=== PATIENT | male | born 1955 | race African-American/Black ===

== ENCOUNTER 2016-12-14 16:15 | Inpatient (IN) ==
[2016-12-14] MEDS ORDERED: MAGNESIUM CITRATE 300 ML BOTTLE PO STA (16:46)
--- NOTE | 2016-12-14 16:46 | Emergency Department Note ---
Arrival - Arrival Chief Complaint: Abdominal / Flank Pain Stated Complaint: impacted,hurting ED Nursing Triage Note: C/O CONSTIPATION. LAST NORMAL BM WAS 3 DAYS AGO. C/O PAIN IN BACK. Mode of Arrival: Wheelchair Limitations: No Limitations Source: Patient Time Seen by Provider: 12/14/16 16:38 - History of Present Illness HPI Narrative: This is a 61-year-old black male who is complaining of diffuse abdominal pain today. Patient states his last normal BM was 3 days ago. He states he had a small hard BM yesterday. He currently takes [place] 5. Onset (ago): day(s) (3) Severity: moderate Quality: cramping Allergies/Adverse Reactions: Allergies Allergy/AdvReac Type Severity Reaction Status Date / Time lisinopril Allergy ANAPHYLAXIS Verified 11/11/16 10:55 Home Medications: Home Medications Medication Instructions Recorded Confirmed Type Metformin HCl 1,000 mg PO BID 09/04/16 11/24/16 History Montelukast Sodium 10 mg PO BEDTIME 09/04/16 11/24/16 History predniSONE TAB [PredniSONE] 5 mg PO DAILY 09/04/16 11/24/16 History Amiodarone Tab [Cordarone Tab] 200 mg PO BID #60 tablet 10/22/16 11/24/16 Rx Theophylline ER Cap (24 Hr) 600 mg PO DAILY #60 capsule 10/22/16 11/24/16 Rx [Alan-24] Albuterol Neb [Proventil Neb] 0.63 mg RESP TX Q6H PRN 11/11/16 11/24/16 History Dexlansoprazole [Dexilant] 60 mg PO DAILY 11/11/16 11/24/16 History Pantoprazole Tab [Protonix Tab] 40 mg PO BID #90 tablet 11/13/16 11/24/16 Rx Budesonide/Formoterol Fumarate 2 puff INH BID 11/24/16 11/24/16 History [Symbicort 160-4.5 Mcg Inhaler] HYDROcodone/ACETAMIN 5-325 [[place] 1 tablet PO BID 11/24/16 11/24/16 History 5-325] Omeprazole [Omeprazole] 20 mg PO BID 11/24/16 11/24/16 History Ondansetron Tab [Zofran Tab] 4 mg PO Q6H PRN #30 tablet 11/24/16 Rx clonazePAM TAB [KlonoPIN] 0.25 mg PO BEDTIME PRN #5 tablet 11/24/16 Rx Review of System - Review of System 12 point system: reviewed and no additional remarkable complaints except as stated - Review of System Constitutional: Present: as per HPI Gastrointestinal: Present: as per HPI, abdominal pain Medical,Surgical,& Family Hx - Medical History Cardio: History of: Cardiac Dysrhythmia (a-fib with RVR after surgery in 09/03) , Hypertension No history of: [place] Neurology: History of: Cerebrovascular Accident (2009) Endocrine: History of: Diabetes Mellitus (NIDDM) Respiratory: History of: Asthma, COPD No history of: Obstructive Sleep Apnea Genitourinary: No history of: Bladder Problem, Kidney Stones Gastrointestinal: History of: GERD, GI Problems - Surgical History Cardiac Surgeries: Patient Denies: Cardiac Catheterization HEENT Surgeries: Patient denies: Tonsilectomy & Adenoidectomy Abdominal Surgeries: Surgical HX of: Colonoscopy, EGD, Hernia Repair (08/2016) Patient denies: Appendectomy, Cholecystectomy Reproductive Surgeries: Patient denies;: Vasectomy Orthopedic Surgeries: Patient denies;: Orthopedic Surgery - Family History Family History: Reports;: Family Diabetes, Family Heart Disease, Family Hypertension Denies;: Family Anesthesia Reaction, Family Cancer, Family Psychiatric Problems, Family Stroke - Social History Smoking Status: Never smoker Frequency of Alcohol Use: None Type of Drug Use: None Exam Physical Examination: - General General appearance: [alert, in moderate distress] - Head Head exam: [Present: atraumatic, normocephalic, normal inspection] - Eye Eye exam: [Present: normal appearance, PERRL, EOMI] - ENT ENT exam: [Present: normal exam, normal oropharynx, mucous membranes moist, TM' s normal bilaterally, normal external ear exam] - Neck Neck exam: [Present: normal inspection, full ROM, trachea midline] - Chest Chest inspection: [Present: normal inspection, symmetric chest wall rise] - Respiratory Respiratory exam: [Present: normal lung sounds bilaterally] - Cardiovascular Cardiovascular exam: [Present: regular rate, normal rhythm, normal heart sounds] - Abdominal Exam Abdominal exam: [Present: soft, hyperactive bowel sounds. Pain on palpation diffusely] - Extremities Exam Extremities exam: [Present: normal inspection, full ROM] - Back Exam Back exam: [Present: normal inspection, full ROM] - Neurological Exam Neurological exam: [Present: alert, oriented X3] - Psychiatric Psychiatric exam: [Present: normal affect, normal mood] - Skin Skin exam: [Present: warm, dry, intact, normal color] Vital Signs: Vital Signs Temperature 99.7 F H 12/14/16 17:05 Pulse Rate 83 12/14/16 17:05 Respiratory Rate 18 12/14/16 17:05 Blood Pressure 117/79 12/14/16 17:05 O2 Sat by Pulse Oximetry 97 12/14/16 16:17 Course - Consultations Consultation #1: I spoke with Dr. Cantu about the patient whom he saw in the clinic this morning. He wants him admitted to the hospital for for an EGD tomorrow. Time: 17:17 Disposition Clinical Impression: Constipation, Dysphagia, Diabetes Case discussed with: patient, patient's physician Disposition: Still a Patient Time of Disposition: 17:23
--- NOTE | 2016-12-14 17:02 | XRay Report ---
Two-view abdomen. Indication: Constipation. Diffuse abdominal pain. Comparison: September 04, 2016. The heart is normal in size. The lung bases are now clear. No free air is identified within the peritoneal cavity. No organomegaly. No abnormal calcifications are seen over the renal outlines. Multiple calcifications project over the pelvis. Injection granulomas are seen at each hip. There is considerable fecal material throughout the length of the colon, including the rectal vault. There are air-fluid levels present, involving both small and large intestine. There is air in slightly dilated small intestine, particularly in the left upper quadrant. Degenerative changes are present and within the spinal column. Impression: Constipation. Scattered air-fluid levels. Mild dilatation of small intestine. A partial obstruction cannot be excluded, which could be caused by the large amount of fecal material. Treatment for constipation with follow-up exam recommended. PROCEDURE INTERPRETED AT [facility] DEPARTMENT OF RADIOLOGY Final Report Signed by: Dr. Dana Cheney
[2016-12-14 17:31] LABS: Basophils % 0.1 % (0.0-0.8); Eosinophils % 0.1 % (0.00-10.9); Hematocrit 43.5 VOL% (42.0-52.0); Hemoglobin 13.5 GM/DL (14.0-18.0); Immature Granulocytes % 0.3 %; Immature Granulocytes Absolute 0.03 #; Lymphocytes # 0.9 10*3/uL (1.4-4.0); Lymphocytes % 9.5 % (21.2-54.2); Mean Corpuscular Hemoglobin 28 PG (27-34); Mean Platelet Volume 9.6 FL (9.6-12.0); Monocytes # 0.9 10*3/uL (0.11-0.8); Monocytes % 9.4 % (1.7-12.7); Neutrophils % 80.6 % (38.7-73.9); Platelet Count 330 T/CUMM (130-400); Red Blood Count 4.89 MC/CUMM (3.8-5.5); White Blood Count 9.9 T/CUMM (4-12)
[2016-12-14 17:55] LABS: Calcium 9.7 MG/DL (8.5-10.1); Osmolality,Calculated 281.1 MOS/KG (273-304); Potassium 3.6 MMOL/L (3.5-5.1)
[2016-12-14] MEDS ORDERED: SODIUM CHLORIDE 0.9% 1,000 ML IV STA (18:12)
[2016-12-14] MEDS ORDERED: ONDANSETRON 4 MG/2 ML VIAL IV PRN (18:37)
[2016-12-14] MEDS ORDERED: ACETAMINOPHEN 325 MG TABLET PO PRN (18:37)
--- NOTE | 2016-12-14 18:48 | Event Note ---
Interval note. Patient was seen in the office this morning. He is approximately 3 months status post repair of a very large paraesophageal hernia. Postoperatively he's had dysphagia that each time has symptoms have improved briefly after dilation. On the last dilation he was noted to have candidiasis and was prescribed Diflucan but it is unsure if the patient ever took that medication. He presented to the office this morning with complaints of recurrence in his dysphagia. I discussed it with Dr. blank and set him up for an EGD to be done as an outpatient tomorrow. After the patient left the office he went home and states he began to have pain trying to have a bowel movement. He states the pain is in the rectal area and has been unable to ago. He hasn't had a bowel movement in 3 days he said. He did not relate any of this problem to me clinic. He came to the emergency room. He has no abdominal pain. On exam he' s mildly distended but nontender. He's mildly tender around the rectal area. No fluctuance or erythema is identified. Labs are okay and abdominal x-ray shows fairly severe constipation. Plan: I'm going to admit the patient both for his dysphagia and his constipation. We'll begin a bowel regimen. We'll consult Dr. aiken for EGD tomorrow. I would like to rule out any further candidiasis before deciding on reoperation for his stricture. We'll also consult Hospital medicine to manage his multiple medical problems.
[2016-12-14] MEDS: LACTATED RINGERS 1,000 ML IV SCH (19:59)
[2016-12-14] MEDS: DOCUSATE SODIUM 100 MG CAPSULE PO SCH (21:51)
[2016-12-15] MEDS: LACTATED RINGERS 1,000 ML IV SCH ×2 (03:46→19:01)
--- NOTE | 2016-12-15 08:35 | Hospitalist Consult Note ---
Assessment and Plan (1) Constipation Status: Acute Assessment and plan: per Dr. Hernandez's note plan is for bowel regimen. Current Visit: Yes (2) COPD (chronic obstructive pulmonary disease) Status: Chronic Assessment and plan: Monitor O2 sats. Restart home medications once patient is no longer NPO. Current Visit: No Qualifiers: COPD type: unspecified COPD Qualified Code(s): J44.9 - Chronic obstructive pulmonary disease, unspecified (3) Diabetes Status: Acute Assessment and plan: Accuchecks ACHS. SSI. Obtain Hemoglobin A1c. Current Visit: Yes (4) Atrial fibrillation Status: Chronic Assessment and plan: Obtain EKG. Pt. currently on amiodarone. Check pt/inr. Telemetry monitoring. Current Visit: No Qualifiers: Atrial fibrillation type: paroxysmal Qualified Code(s): I48.0 - Paroxysmal atrial fibrillation (5) Hypertension Status: Chronic Assessment and plan: Pt's vs currently stable. Will continue to monitor. Restart home meds if necessary. Current Visit: No Qualifiers: Hypertension type: essential hypertension Qualified Code(s): I10 - Essential (primary) hypertension History of Present Illness - Data of Consult Consult date: 12/15/16 - Consult Narrative Reason for consult: medical management History of present illness: Patient seen and examined. Mr. Abreu is a 61 yr old black male patient with a hx of dm, htn, afib, asthma, COPD, empheysema, and recent repair of large paraesophageal hernia. The patient was seen by Dr. Hernandez in office yesterday for a follow up. Pt. was having issues with dysphagia postoperatively. The patient was to follow up for EGD as an outpatient however after office visit, pt complained of pain while trying to have a bowel movement. Pt. reported to ER with abd pain and was subsequently was admitted. Abd xray revealed severe constipation. Pt. stated he has not had a bowel movement in several days. He also admits to taking pain medication ([place] 5/325mg) regularly. Pt denies abd discomfort or tenderness today but is slightly distended. Denies fever, chills, nausea or vomiting as well. Discussed with patient plans for management of other comorbidities. Thank you for your consult. CC: Jaguar Hernandez MD - Home Medications and Allergies Home Medications: Home Medications Medication Instructions Recorded Confirmed Type Metformin HCl 500 mg PO BID 09/04/16 12/14/16 History Montelukast Sodium 10 mg PO BEDTIME 09/04/16 12/14/16 History predniSONE TAB [PredniSONE] 5 mg PO DAILY 09/04/16 12/14/16 History Amiodarone Tab [Cordarone Tab] 200 mg PO BID #60 tablet 10/22/16 12/15/16 Rx Albuterol Neb [Proventil Neb] 0.63 mg RESP TX Q6H PRN 11/11/16 12/14/16 History Dexlansoprazole [Dexilant] 60 mg PO DAILY 11/11/16 12/14/16 History Budesonide/Formoterol Fumarate 2 puff INH BID 11/24/16 12/14/16 History [Symbicort 160-4.5 Mcg Inhaler] HYDROcodone/ACETAMIN 5-325 [[place] 1 tablet PO BID 11/24/16 12/14/16 History 5-325] Omeprazole [Omeprazole] 20 mg PO BID 11/24/16 12/15/16 History Amlodipine Besylate 10 mg PO DAILY 12/14/16 12/14/16 History Theophylline ER Cap (24 Hr) 600 mg PO BID 12/14/16 12/14/16 History [Alan-24] cephALEXin [Cephalexin] 500 mg PO BID 12/14/16 12/14/16 History Allergies/Adverse Reactions: Allergies Allergy/AdvReac Type Severity Reaction Status Date / Time lisinopril Allergy ANAPHYLAXIS Verified 11/11/16 10:55 Medical,Surgical,& Family Hx - Medical History Cardio: History of: Cardiac Dysrhythmia (a-fib with RVR after surgery in 09/03) , Hypertension No history of: [place] Neurology: History of: Cerebrovascular Accident (2009) Endocrine: History of: Diabetes Mellitus (NIDDM) Respiratory: History of: Asthma, COPD No history of: Obstructive Sleep Apnea Genitourinary: No history of: Bladder Problem, Kidney Stones Gastrointestinal: History of: GERD, GI Problems - Surgical History Cardiac Surgeries: Patient Denies: Cardiac Catheterization HEENT Surgeries: Patient denies: Tonsilectomy & Adenoidectomy Abdominal Surgeries: Surgical HX of: Colonoscopy, EGD, Hernia Repair (08/2016) Patient denies: Appendectomy, Cholecystectomy Reproductive Surgeries: Patient denies;: Vasectomy Orthopedic Surgeries: Patient denies;: Orthopedic Surgery - Family History Family History: Reports;: Family Diabetes, Family Heart Disease, Family Hypertension Denies;: Family Anesthesia Reaction, Family Cancer, Family Psychiatric Problems, Family Stroke - Social History Smoking Status: Former smoker Frequency of Alcohol Use: None Type of Drug Use: None Lives With:: Parent Functional capacity: independent ambulation - Constitutional Constitutional: Absent: chills, fever(s), headache(s) - EENT Eyes: Absent: loss of vision - Cardiovascular Cardiovascular: Absent: edema - Respiratory Respiratory: Absent: cough - Gastrointestinal Gastrointestinal: Present: constipation, dysphagia. Absent: nausea, vomiting - Genitourinary Genitourinary: Absent: difficulty urinating Exam - Constitutional Vitals: Period Temp Pulse Resp BP Sys/Jeffrey Pulse Ox Last 24 Hr 98.5 F-99.3 F 63-80 20-20 104-128/67-78 96-99 General appearance: normal weight, no acute distress - Head Head exam: Present: normal inspection, normocephalic - Eye Eye exam: Present: EOMI Pupils: Present: BELEN - Neck Neck exam: Present: normal inspection - Respiratory Respiratory exam: Present: clear to auscultation bilaterally - GI/Abdominal GI/Abdominal exam: Present: normal bowel sounds, distended. Absent: tenderness - Extremities Exam Extremities exam: Present: normal capillary refill, full ROM. Absent: edema - Neurological Exam Neurological exam: Present: alert, oriented X3, normal gait - Psychiatric Psychiatric exam: Present: normal affect, normal mood - Skin Skin exam: Present: normal color, warm, dry Results - Labs CBC & BMP: 12/14/16 17:17 12/14/16 17:17 Lab Results: I have reviewed the past 24 hour labs Quality Measures - VTE Contraindication to Pharmacological VTE Prophylaxis: High Risk of Bleeding
[2016-12-15] MEDS ORDERED: BISACODYL 10 MG SUPP RECTAL SCH (09:00)
[2016-12-15] MEDS: BISACODYL 5 MG TABLET PO SCH (09:51)
[2016-12-15] MEDS: DOCUSATE SODIUM 100 MG CAPSULE PO SCH ×2 (09:52→21:15)
[2016-12-15] MEDS: PANTOPRAZOLE 40 MG TABLET PO SCH (09:52)
[2016-12-15] MEDS ORDERED: DEXTROSE 50% 25 GM/50 ML VIAL IV PRN (09:55)
[2016-12-15] MEDS ORDERED: GLUCAGON 1 MG VIAL IM PRN (09:55)
[2016-12-15] MEDS: POLYETHYLENE GLYCOL POWDER 17 GM PACK PO SCH (09:55)
[2016-12-15] MEDS ORDERED: ALBUTEROL 0.63 MG/3 ML NEB RESP TX PRN (10:10)
--- NOTE | 2016-12-15 10:16 | Gastrointestinal Consult Note ---
<Zaida Cota - Last Filed: 12/15/16 10:08> Assessment and Plan (1) Dysphagia Status: Acute Assessment and plan: 12/15-History of dysphagia following large paraesophageal hernia repair 3 months ago presents with continued dysphagia with mild improvements. Has undergone 3 prior EGDs with balloon dilation in past couple months. Weight down slightly from last admission. Scheduled for repeat EGD today, Plan and addendum to followed by Dr. Mclain Current Visit: No (2) Constipation Status: Acute Assessment and plan: 12/15-Complaints of worsening constipation, abd distention. Abd xray results noted. Pt with large bowel movement this morning, report of relief of abd distention, discomfort. Continue bowel regimen. Plan and addendum to follow by Dr Mclain. Current Visit: Yes History of Present Illness Chief complaint: Dysphagia, constipation History of present illness: Mr. Abreu is a 61 year old male who presented to the hospital with complaints of dysphagia and constipation. Pt was seen in clinic on yesterday by Dr Hernandez for followup on his dysphagia following paraesophageal hernia repair which was done 3 months ago. During the clinic visit he voiced complaints of his continued dysphagia and episodes of nausea with vomiting and regurgitation at times. He was scheduled for an outpatient EGD on today with Dr Mclain. He returned home following the appointment and later in the evening he called back complaining of abdominal pain and no bowel movement x 3 days. He was referred to the ER for further evaluation. Pt states that he has had some constipation issues over the last several weeks. States his swallowing has been some better and able to take more in orally however at times he will have off and on episodes of nausea after eating with regurgitation and vomiting. He states this has improved some. He has had 3 recent EGD with balloon dilation with most recent on 11/12 with also findings of oral candiadias. He was discharged home on Fluconazole. Abdominal xray on admission showed constipation, mild dilation of small intestine. On his last admission in Oct he had a barium swallow with findings of narrowing of distal esophagus with no significant changes from previous study. Pt states that he has had no abdominal pain. His weight is down approximately 4-5 pounds from last inpatient stay in Oct. He states he is not gaining weight but he is eating more. He has had a large bowel movement this morning with initiation of bowel regimen. He is scheduled for EGD today. Home Medications Medication Instructions Recorded Confirmed Type Metformin HCl 500 mg PO BID 09/04/16 12/14/16 History Montelukast Sodium 10 mg PO BEDTIME 09/04/16 12/14/16 History predniSONE TAB [PredniSONE] 5 mg PO DAILY 09/04/16 12/14/16 History Amiodarone Tab [Cordarone Tab] 200 mg PO BID #60 tablet 10/22/16 12/15/16 Rx Albuterol Neb [Proventil Neb] 0.63 mg RESP TX Q6H PRN 11/11/16 12/14/16 History Dexlansoprazole [Dexilant] 60 mg PO DAILY 11/11/16 12/14/16 History Budesonide/Formoterol Fumarate 2 puff INH BID 11/24/16 12/14/16 History [Symbicort 160-4.5 Mcg Inhaler] HYDROcodone/ACETAMIN 5-325 [[place] 1 tablet PO BID 11/24/16 12/14/16 History 5-325] Omeprazole [Omeprazole] 20 mg PO BID 11/24/16 12/15/16 History Amlodipine Besylate 10 mg PO DAILY 12/14/16 12/14/16 History Theophylline ER Cap (24 Hr) 600 mg PO BID 12/14/16 12/14/16 History [Alan-24] cephALEXin [Cephalexin] 500 mg PO BID 12/14/16 12/14/16 History Allergies Allergy/AdvReac Type Severity Reaction Status Date / Time lisinopril Allergy ANAPHYLAXIS Verified 11/11/16 10:55 Medical,Surgical,& Family Hx - Medical History Cardio: History of: Cardiac Dysrhythmia (a-fib with RVR after surgery in 09/03) , Hypertension No history of: [place] Neurology: History of: Cerebrovascular Accident (2009) Endocrine: History of: Diabetes Mellitus (NIDDM) Respiratory: History of: Asthma, COPD No history of: Obstructive Sleep Apnea Genitourinary: No history of: Bladder Problem, Kidney Stones Gastrointestinal: History of: GERD, GI Problems - Surgical History Cardiac Surgeries: Patient Denies: Cardiac Catheterization HEENT Surgeries: Patient denies: Tonsilectomy & Adenoidectomy Abdominal Surgeries: Surgical HX of: Colonoscopy, EGD, Hernia Repair (08/2016) Patient denies: Appendectomy, Cholecystectomy Reproductive Surgeries: Patient denies;: Vasectomy Orthopedic Surgeries: Patient denies;: Orthopedic Surgery - Family History Family History: Reports;: Family Diabetes, Family Heart Disease, Family Hypertension Denies;: Family Anesthesia Reaction, Family Cancer, Family Psychiatric Problems, Family Stroke - Social History Smoking Status: Former smoker Frequency of Alcohol Use: None Type of Drug Use: None 12 point system: reviewed and no additional remarkable complaints except as stated - Constitutional Constitutional: Present: as per HPI - EENT Eyes: Present: as per HPI Ears: Present: as per HPI Nose, mouth and throat: Present: as per HPI, dysphagia - Cardiovascular Cardiovascular: Present: as per HPI - Respiratory Respiratory: Present: as per HPI - Gastrointestinal Gastrointestinal: Present: as per HPI, dysphagia, nausea, vomiting, other ( Regurgitating following eating) - Genitourinary Genitourinary: Present: as per HPI - Musculoskeletal Musculoskeletal: Present: as per HPI - Neurological Neurological: Present: as per HPI - Psychiatric Psychiatric: Present: as per HPI - Endocrine Endocrine: Present: as per HPI - Hematologic/Lymphatic Hematologic/Lymphatic: Present: as per HPI Exam - Constitutional Vitals: Period Temp Pulse Resp BP Sys/Jeffrey Pulse Ox Last 24 Hr 98.5 F-99.3 F 63-80 20-20 104-128/67-78 96-99 General appearance: normal weight, no acute distress - Head Head exam: Present: normal inspection, normocephalic - Eye Eye exam: Present: other (Lids and conjunctivae are normal). Absent: scleral icterus - ENT ENT exam: Present: normal exam, normal oropharynx - Neck Neck exam: Present: normal inspection - Respiratory Respiratory exam: Present: clear to auscultation bilaterally. Absent: rales, rhonchi, wheezes - Cardiovascular Cardiovascular exam: Present: regular rate and rhythm. Absent: diastolic murmur , JVD, systolic murmur - GI/Abdominal GI/Abdominal exam: Present: normal bowel sounds, soft. Absent: ascites, distended, mass, organomegaly, tenderness - Extremities Exam Extremities exam: Present: normal inspection, full ROM - Back Exam Back exam: Present: normal inspection - Neurological Exam Neurological exam: Present: alert, oriented X3 - Psychiatric Psychiatric exam: Present: normal affect, normal mood - Skin Skin exam: Present: normal color, warm, dry Results - Labs CBC & BMP: 12/14/16 17:17 12/14/16 17:17 Lab Results: I have reviewed the past 24 hour labs Quality Measures - VTE Contraindication to Pharmacological VTE Prophylaxis: High Risk of Bleeding <Dao Mclain - Last Filed: 12/15/16 13:36> History of Present Illness History of present illness: Mr. Abreu is a 61 year old male Exam - Constitutional Vitals: Period Temp Pulse Resp BP Sys/Jeffrey Pulse Ox Last 24 Hr 98.5 F-99.3 F 63-80 20-20 104-128/67-78 96-99 Results - Labs CBC & BMP: 12/14/16 17:17 12/14/16 17:17
--- NOTE | 2016-12-15 13:29 | Event Note ---
Vital signs stable. Patient had several bowel movements and his constipation symptoms are much improved. He is for EGD today. Abdomen is soft nontender nondistended. We'll schedule for gastric emptying scan tomorrow. Possible surgery on Tuesday.
[2016-12-15] MEDS ORDERED: LIDOCAINE 2% 5 ML VIAL ONE (13:34)
[2016-12-15] MEDS ORDERED: PROPOFOL 200 MG/20 ML VIAL IV ONE (13:34)
--- NOTE | 2016-12-15 13:38 | History and Physical Update ---
History and Physical Update - History and Physical H&P was reviewed, the patient examined and there: are no changes in the patients condition since last H&P was completed. - Physical Exam Mental Status: alert and oriented Heart: regular rate and rhythm Lung: clear to auscultation Abdomen: within normal limits Vitals: within normal limits
[2016-12-15] MEDS ORDERED: ALBUTEROL/IPRATROPIUM 3 ML NEB RESP TX STA (14:03)
--- NOTE | 2016-12-15 14:12 | Operative Note ---
Date of procedure: 12/15/16 Pre-op diagnosis: Dysphagia Procedure: Procedure: Esophagogastroduodenoscopy with balloon dilation esophagus Brief clinical abstract: Patient is a 61-year-old male who has had recurrent stricture formation after Tiffany fundoplication. He also had esophageal candidiasis noted and EGD about a month ago. He returns with complaint of difficulty swallowing. Indication for procedure: Dysphagia Endoscopic findings:[After informed consent was obtained, the patient was placed in the left lateral decubitus position. The gastroscope was inserted in the upper esophagus under direct vision with no resistance encountered. A moderate amount of whitish exudate was scattered in the upper and midesophagus consistent with candidiasis. Just above the GE junction a couple of sutures were noted. Just distal to this moderate narrowing was visible. The endoscope was advanced in the stomach which was carefully examined including retroflexed view of the cardia and fundus with no other abnormality seen. The pyloric channel, duodenal bulb, second and third portion of the duodenum were normal. Endoscope was withdrawn and then Emden wire-guided balloon was advanced to the GE junction. This was initially dilated to 15 mm for 60 seconds and deflated. No bleeding or mucosal tear was seen. The balloon was reinflated to 16.5 mm for 60 seconds and deflated again. Again, no mucosal tear or bleeding was visible. The endoscope was then removed. He appeared to tolerate the procedure well. Impression: #1 esophageal candidiasis #2 distal esophageal stricture-mild to moderate severity with significant improvement from initial dilation; status post balloon dilation today Recommendations: Fluconazole F Anesthesia: MAC Surgeon / Physician: Dao Mclain Estimated blood loss: none Specimens: none sent Condition: stable Disposition: post procedure unit Results - Labs CBC & BMP: 12/14/16 17:17 12/14/16 17:17 Discharge Plan - Discharge Medications No Action Montelukast Sodium 10 mg PO BEDTIME Metformin HCl 500 mg PO BID Dexlansoprazole [Dexilant] 60 mg PO DAILY Budesonide/Formoterol Fumarate [Symbicort 160-4.5 Mcg Inhaler] 2 puff INH BID HYDROcodone/ACETAMIN 5-325 [[place] 5-325] 1 tablet PO BID Amlodipine Besylate 10 mg PO DAILY Theophylline ER Cap (24 Hr) [Alan-24] 600 mg PO BID predniSONE TAB [PredniSONE] 5 mg PO DAILY Amiodarone Tab [Cordarone Tab] 200 mg PO BID #60 tablet Albuterol Neb [Proventil Neb] 0.63 mg RESP TX Q6H PRN PRN Reason: Shortness Of Breath/Wheezing Omeprazole [Omeprazole] 20 mg PO BID cephALEXin [Cephalexin] 500 mg PO BID - Follow Up or Referral - Forms/Instructions
--- NOTE | 2016-12-15 14:36 | Anesthesia ---
Anesthesia Post OP - Post Ansesthetic Evaluation Patient seen in post op: Yes Resp: within normal limits CV: within normal limits Mental: within normal limits Temp: within normal limits Saaj-Wg-Qjjmfwzxv: within normal limits Nausea and Vomiting: within normal limits Pain: within normal limits
[2016-12-15] MEDS: THEOPHYLLINE ER (24 HR) 300 MG CAPSULE PO SCH ×2 (15:41→21:15)
[2016-12-15] MEDS: AMIODARONE 200 MG TABLET PO SCH (15:41)
[2016-12-15] MEDS: amLODIPine 10 MG TABLET PO SCH (15:42)
[2016-12-15] MEDS: INSULIN LISPRO 100 UNIT/ML SUBCUT SCH ×3 (15:42→21:16)
[2016-12-15] MEDS ORDERED: FLUCONAZOLE INJ 200 MG in PREMIX 1 EACH IV ONE (16:50)
[2016-12-15] MEDS: MONTELUKAST 10 MG TABLET PO SCH (21:15)
[2016-12-15] MEDS: BUDESONIDE/FORMOTEROL 160-4.5 INHALER 6 GM INH SCH (21:21)
[2016-12-16] MEDS: LACTATED RINGERS 1,000 ML IV SCH ×4 (00:10→19:45)
[2016-12-16 05:52] LABS: Basophils % 0.1 % (0.0-0.8); Eosinophils # 0.1 10*3/uL (0.0-0.87); Eosinophils % 1.8 % (0.00-10.9); Hemoglobin 11.6 GM/DL (14.0-18.0); Immature Granulocytes % 0.3 %; Immature Granulocytes Absolute 0.02 #; Lymphocytes # 1.4 10*3/uL (1.4-4.0); Lymphocytes % 18.6 % (21.2-54.2); Mean Corpuscular HGB Conc 31.4 GM/DL (32-36); Mean Corpuscular Hemoglobin 28 PG (27-34); Mean Corpuscular Volume 87.7 FL (87-102); Mean Platelet Volume 9.7 FL (9.6-12.0); Monocytes # 0.9 10*3/uL (0.11-0.8); Monocytes % 11.7 % (1.7-12.7); Neutrophils % 67.5 % (38.7-73.9); Platelet Count 272 T/CUMM (130-400); Red Blood Count 4.22 MC/CUMM (3.8-5.5); White Blood Count 7.3 T/CUMM (4-12)
[2016-12-16 06:02] LABS: INR 1.1; PT Patient Result 11.3 SECS
[2016-12-16 06:32] LABS: Calcium 9.1 MG/DL (8.5-10.1)
[2016-12-16 06:33] LABS: Osmolality,Calculated 283.7 MOS/KG (273-304); Potassium 4.2 MMOL/L (3.5-5.1)
[2016-12-16] MEDS: INSULIN LISPRO 100 UNIT/ML SUBCUT SCH ×4 (10:30→20:40)
--- NOTE | 2016-12-16 11:15 | Nuclear Medicine Report ---
Exam: Nuclear medicine gastric emptying study Date: December 16, 2016 Comparison: None Reason: Vomiting Technique: The patient was orally administered 500 microcuries of technetium 99m sulfur colloid orally in a scrambled egg sandwich. Images of the stomach were then acquired over 224 minutes, and gastric emptying time was calculated. Findings: Linear fit T 1/2 is 732.32 minutes, and raw data T 1/2 could not be determined. Gastric emptying at 224 minutes is 16% (Normal greater than 90%). Radiotracer activity is seen at the esophagus on all images. This is consistent with gastroesophageal reflux and is most prominent on the 1 minute image where there is reflux to at least the mid esophagus. Impression: 1. Findings are consistent with delayed gastric emptying. 2. Gastroesophageal reflux is seen throughout the study. PROCEDURE INTERPRETED AT [facility] DEPARTMENT OF RADIOLOGY Final Report Signed by: Dr. Jeff Benedict
[2016-12-16] MEDS: THEOPHYLLINE ER (24 HR) 300 MG CAPSULE PO SCH ×2 (11:38→20:39)
[2016-12-16] MEDS: amLODIPine 10 MG TABLET PO SCH (11:38)
[2016-12-16] MEDS: predniSONE 5 MG TABLET PO SCH (11:38)
[2016-12-16] MEDS: PANTOPRAZOLE 40 MG TABLET PO SCH (11:39)
[2016-12-16] MEDS: DOCUSATE SODIUM 100 MG CAPSULE PO SCH ×2 (11:40→20:39)
[2016-12-16] MEDS: BISACODYL 5 MG TABLET PO SCH (11:40)
[2016-12-16] MEDS: ASPIRIN CHEW 81 MG TABLET PO SCH (11:40)
[2016-12-16] MEDS: BUDESONIDE/FORMOTEROL 160-4.5 INHALER 6 GM INH SCH ×2 (11:41→20:39)
[2016-12-16] MEDS: POLYETHYLENE GLYCOL POWDER 17 GM PACK PO SCH (11:41)
--- NOTE | 2016-12-16 13:44 | Gastrointestinal Progress Note ---
Assessment and Plan (1) Dysphagia Status: Acute Assessment and plan: 12/16-dysphagia improved status post balloon dilation on yesterday. EGD findings noted. Tolerating diet at present time without difficulty. Gastric emptying scan results noted with delayed emptying. Plan an addendum to followed by Dr. Mclain 12/15-History of dysphagia following large paraesophageal hernia repair 3 months ago presents with continued dysphagia with mild improvements. Has undergone 3 prior EGDs with balloon dilation in past couple months. Weight down slightly from last admission. Scheduled for repeat EGD today, Plan and addendum to followed by Dr. Mclain Current Visit: No (2) Constipation Status: Acute Assessment and plan: 12/16-constipation resolved at present time. 12/15-Complaints of worsening constipation, abd distention. Abd xray results noted. Pt with large bowel movement this morning, report of relief of abd distention, discomfort. Continue bowel regimen. Plan and addendum to follow by Dr Mclain. Current Visit: Yes Gastroenterology - PN: Subj Interval history: CC: Dysphagia Patient is seen awake and alert sitting up in bed. States he is feeling better today. States he was able to eat more today of his diet and is denying difficulty swallowing at present time. Denies any further nausea or vomiting at present time as well. He did go down for a gastric emptying scan today and it was noted to show delayed emptying with 16% at 224 minutes. EGD findings and yesterday noted with esophageal candidiasis and distal esophageal stricture with balloon dilation. Fluconazole started. Abdomen is soft, nontender. ROS: Denies shortness of breath or chest pain Exam (Progress Note) - Constitutional Vitals: Period Temp Pulse Resp BP Sys/Jeffrey Pulse Ox Last 24 Hr 96.5 F-99.1 F 60-82 18-23 91-143/45-90 91-99 - Other Additional findings: General appearance: normal weight, no acute distress - Head Head exam: Present: normal inspection, normocephalic - Eye Eye exam: Present: other (Lids and conjunctivae are normal). Absent: scleral icterus - ENT ENT exam: Present: normal exam, normal oropharynx - Neck Neck exam: Present: normal inspection - Respiratory Respiratory exam: Present: clear to auscultation bilaterally. Absent: rales, rhonchi, wheezes - Cardiovascular Cardiovascular exam: Present: regular rate and rhythm. Absent: diastolic murmur , JVD, systolic murmur - GI/Abdominal GI/Abdominal exam: Present: normal bowel sounds, soft. Absent: ascites, distended, mass, organomegaly, tenderness - Extremities Exam Extremities exam: Present: normal inspection, full ROM - Back Exam Back exam: Present: normal inspection - Neurological Exam Neurological exam: Present: alert, oriented X3 - Psychiatric Psychiatric exam: Present: normal affect, normal mood - Skin Skin exam: Present: normal color, warm, dry Results - Labs CBC & BMP: 12/16/16 05:38 12/16/16 05:38 Lab Results: I have reviewed the past 24 hour labs
--- NOTE | 2016-12-16 14:02 | Hospitalist Progress Note ---
Assessment and Plan (1) Hypertension Status: Chronic Assessment and plan: Patient's blood pressure has been running a little bit low. I am going to reduce his Norvasc dose from 10 mg to 5 mg daily. Current Visit: No Qualifiers: Hypertension type: essential hypertension Qualified Code(s): I10 - Essential (primary) hypertension (2) COPD (chronic obstructive pulmonary disease) Status: Chronic Assessment and plan: Continue medications. Current Visit: No Qualifiers: COPD type: unspecified COPD Qualified Code(s): J44.9 - Chronic obstructive pulmonary disease, unspecified (3) Atrial fibrillation Status: Chronic Assessment and plan: Patient is currently not anticoagulated. Review of his previous medical record shows that he was on Eliquis and amiodarone. Medication list from his pharmacy shows that he has not been on those medications for over 3 months. He will need outpatient cardiology follow-up after discharge. Current Visit: No Qualifiers: Atrial fibrillation type: paroxysmal Qualified Code(s): I48.0 - Paroxysmal atrial fibrillation (4) Dysphagia Status: Acute Assessment and plan: This has improved after esophageal dilatation by gastroenterology. Current Visit: No Hospitalist: Subjective Interval history: Patient seen and examined. No acute events. Gastric emptying study shows delayed gastric emptying. Swallowing is improved after EGD with dilatation. Patient started on treatment for esophageal candidiasis. Blood pressure is running a little low. I am going to reduce his Norvasc from 10 mg to 5 mg. Medication list was obtained from Mr. salas at [facility]. The patient has not been receiving Eliquis or amiodarone as an outpatient for the last 3 months. Medications were adjusted and reconciled once again. The hospital pharmacist's help is greatly appreciated. Exam - Constitutional Vitals: Period Temp Pulse Resp BP Sys/Jeffrey Pulse Ox Last 24 Hr 96.5 F-99.1 F 60-82 18-23 91-143/45-90 91-99 Exam: Constitutional System: No distress. No tremulousness. Head: Normocephalic, atraumatic. Ears, Nose and Throat System: No pain or tenderness. No epistaxis or discharge Eyes System: Pupils equal, round, and reactive. Extraocular muscles intact. Neck: Supple, without adenopathy, No jugular venous distention. No thyromegaly, neck mass, or prior surgery apparent. Respiratory System: Chest clear to auscultation. Cardiovascular System: Heart with regular rate and rhythm. No murmur. GI System: Abdomen soft, nontender. Normo active bowel sounds present. Musculoskeletal System: limbs with no pedal edema. Full distal pulses. Neurological System: No discernable sensory deficit. No aphasia Psychiatric System: Conversation is rational Results - Labs CBC & BMP: 12/16/16 05:38 12/16/16 05:38 Lab Results: I have reviewed the past 24 hour labs Quality Measures - VTE Contraindication to Pharmacological VTE Prophylaxis: High Risk of Bleeding
--- NOTE | 2016-12-16 14:07 | Event Note ---
Patient seen and examined. He's doing pretty well. He underwent dilation of the stricture yesterday. He's been tolerating full liquid diet without problems. This is been pretty standard for him after dilation in the past where he does well for several days and then has further problems of dysphagia. He underwent gastric emptying scan today which shows markedly severe gastroparesis. Maybe due to vagal issues with his previous fundoplication. In addition he had radiotracer still in the esophagus which was read as reflux. However I feel like this is most likely due to retained radiotracer that never made it into the stomach because of the stricture. I reviewed the previous barium studies. I discussed the problems with him. We discussed the possibilities of continuing current management. He has been unable to take Reglan in the past. I think the best option for him would be conversion of his Tiffany to a toupee to relieve the stricture at the wrap as well as a pyloroplasty to allow the stomach to empty better. I discussed this with him in detail including how the procedures are performed and the anticipated recovery. Risk of the procedure including bleeding, infection, damage to surrounding structures, need for further surgery, gastric or esophageal leak or injury, fistula, nontherapeutic procedure were all discussed in detail. He would like to proceed. We'll make him nothing by mouth at midnight and plan for surgery tomorrow. Case is been discussed with Dr. Cárdenas who agrees.
[2016-12-16] MEDS: MONTELUKAST 10 MG TABLET PO SCH (20:39)
[2016-12-16] MEDS: FLUCONAZOLE INJ 100 MG in IV BAG 1 EACH IV SCH (20:39)
[2016-12-17] MEDS: LACTATED RINGERS 1,000 ML IV SCH ×3 (03:45→20:19)
[2016-12-17] MEDS ORDERED: VANCOMYCIN 500 MG VIAL ONE (09:54)
[2016-12-17] MEDS ORDERED: PROPOFOL 200 MG/20 ML VIAL IV ONE (09:58)
[2016-12-17] MEDS ORDERED: ONDANSETRON 4 MG/2 ML VIAL ONE (09:58)
[2016-12-17] MEDS ORDERED: METOCLOPRAMIDE 10 MG/2 ML VIAL ONE (09:58)
[2016-12-17] MEDS ORDERED: DEXAMETHASONE 4 MG/1 ML VIAL ONE (09:58)
[2016-12-17] MEDS ORDERED: ROCURONIUM 100 MG/10 ML VIAL IV ONE (09:58)
[2016-12-17] MEDS ORDERED: MINERAL OIL/PETROLATUM OPH OINT 3.5 GM TUBE ONE (09:58)
[2016-12-17] MEDS ORDERED: LIDOCAINE 100 MG/5 ML SYRINGE ONE (09:58)
[2016-12-17] MEDS ORDERED: GLYCOPYRROLATE 0.4 MG/2 ML VIAL ONE (09:58)
[2016-12-17] MEDS ORDERED: NEOSTIGMINE 10 MG/10 ML VIAL ONE (09:58)
--- NOTE | 2016-12-17 11:33 | Hospitalist Progress Note ---
Assessment and Plan (1) Hypertension Status: Chronic Assessment and plan: Patient's blood pressure has been running a little bit low. I am going to reduce his Norvasc dose from 10 mg to 5 mg daily. Current Visit: No Qualifiers: Hypertension type: essential hypertension Qualified Code(s): I10 - Essential (primary) hypertension (2) COPD (chronic obstructive pulmonary disease) Status: Chronic Assessment and plan: Continue medications. Current Visit: No Qualifiers: COPD type: unspecified COPD Qualified Code(s): J44.9 - Chronic obstructive pulmonary disease, unspecified (3) Atrial fibrillation Status: Chronic Assessment and plan: Patient is currently not anticoagulated. Review of his previous medical record shows that he was on Eliquis and amiodarone. Medication list from his pharmacy shows that he has not been on those medications for over 3 months. He will need outpatient cardiology follow-up after discharge. Current Visit: No Qualifiers: Atrial fibrillation type: paroxysmal Qualified Code(s): I48.0 - Paroxysmal atrial fibrillation (4) Dysphagia Status: Acute Assessment and plan: This has improved after esophageal dilatation by gastroenterology. Current Visit: No Hospitalist: Subjective Interval history: Patient also floor for surgical procedure with Dr. Cantu. Chart reviewed. Case discussed with nursing staff. Vital signs stable. Labs reviewed. Exam - Constitutional Vitals: Period Temp Pulse Resp BP Sys/Jeffrey Pulse Ox Last 24 Hr 96.5 F-99.5 F 60-72 18-20 92-104/57-68 95-97 Results - Labs CBC & BMP: 12/16/16 05:38 12/16/16 05:38 Lab Results: I have reviewed the past 24 hour labs Quality Measures - VTE Contraindication to Pharmacological VTE Prophylaxis: High Risk of Bleeding
--- NOTE | 2016-12-17 12:44 | Operative Note ---
Date of procedure: 12/17/16 Procedure: Dr. Cordova operative note Shan Abreu. Procedure I assisted Dr. Hernandez throughout the case of a revision of Mr. Abreu's Tiffany fundoplication as well as placement of a Christina gastrojejunal tube in Milena pyloroplasty. Details of the operation are completed by Dr. Cantu but I was assisted throughout the procedure until closure. Surgeon / Physician: Hansel Cordova Results - Labs CBC & BMP: 12/16/16 05:38 12/16/16 05:38 Discharge Plan - Discharge Medications No Action Montelukast Sodium 10 mg PO BEDTIME Metformin HCl 1,000 mg PO BID W/MEALS Dexlansoprazole [Dexilant] 60 mg PO DAILY Budesonide/Formoterol Fumarate [Symbicort 160-4.5 Mcg Inhaler] 2 puff INH BID HYDROcodone/ACETAMIN 5-325 [[place] 5-325] 1 tablet PO BID PRN PRN Reason: Pain Amlodipine Besylate 10 mg PO DAILY Theophylline ER Cap (24 Hr) [Alan-24] 300 mg PO BID W/MEALS Metoclopramide Tab [Reglan Tab] 10 mg PO ACHS predniSONE TAB [PredniSONE] 5 mg PO DAILY Albuterol Neb [Proventil Neb] 0.63 mg RESP TX Q6H cephALEXin [Cephalexin] 500 mg PO BID - Follow Up or Referral - Forms/Instructions
[2016-12-17] MEDS ORDERED: MIDAZOLAM 2 MG/2 ML VIAL ONE (13:23)
[2016-12-17] MEDS ORDERED: fentaNYL 100 MCG/2 ML VIAL ONE (13:23)
[2016-12-17] MEDS ORDERED: ACETAMINOPHEN 1,000 MG/100 ML VIAL IV ONE (13:23)
[2016-12-17 13:26] LABS: Apearance,Urine CLEAR (Clear); Bilirubin,Urine Negative (Negative); Blood, Urine Negative (Negative); Glucose,Urine (UA) Negative (Negative); Ketones,Urine Negative (Negative); Mucus,Urine Occasional /LPF (Occasional); Nitrite,Urine Negative (Negative); Protein,Urine Negative; RBC,Urine <1 /HPF (0-4); Urine Color Straw (Yellow); Urine Specific Gravity 1.006 (1.001-1.035); Urine Urobilinogen < 2.0 EU/DL (0.2-1.0); WBC,Urine 1 /HPF (0-6)
[2016-12-17] MEDS ORDERED: DESFLURANE 1 UNIT/15 MINUTE INH ONE (13:26)
[2016-12-17] MEDS ORDERED: ONDANSETRON 4 MG/2 ML VIAL IV PRN (13:32)
[2016-12-17] MEDS: HYDROmorphone 2 MG/1 ML VIAL IV PRN ×4 (13:37→14:06)
[2016-12-17] MEDS ORDERED: LACTATED RINGERS 1,000 ML IV SCH (14:00)
[2016-12-17] MEDS ORDERED: NALOXONE 0.4 MG/ML VIAL IV PRN (14:23)
[2016-12-17] MEDS: INSULIN LISPRO 100 UNIT/ML SUBCUT SCH ×4 (15:28→20:24)
--- NOTE | 2016-12-17 15:48 | Operative Note ---
Date of procedure: 12/17/16 Pre-op diagnosis: status post Tiffany fundoplication with stricture, gastroparesis Post-op diagnosis: same Procedure: Procedure performed: #1 exploratory laparotomy with revision of Tiffany fundoplication #2 lysis of adhesions #3 pyloroplasty #4 placement of gastrojejunostomy tube #5 modifier 22 Procedure in detail: After informed consent was obtained, patient was taken operating suite and laid supine on the operating table. After general anesthesia was induced Owens catheter was placed and the abdomen was prepped and draped in usual sterile fashion. After procedural pause midline laparotomy incision was made incorporating the old incision and dissection carried down through skin and soft tissue and scar. The fascia was opened and there were a lot of adhesions in the upper portion of the abdomen to the anterior abdominal wall. These adhesions were all taken down off the anterior abdominal wall. The stomach and wrap were very adherent to the left lobe of the liver and tedious dissection was used to free the left lobe of the liver off of the diaphragm and stomach. Once this was done I was able to get into a plane down by the caudate lobe and freed the caudate lobe off of the stomach wall as well. Bookwalter retractor was placed and there was excellent visualization. A lighted 50 Turkish bougie was advanced and identified coming through the GE junction at the hiatus. The wrap appeared to be very adherent up by the hiatus and there was a lot of scar tissue that developed anteriorly and appeared to be causing the stricture of the esophagus. Tedious dissection was performed to remove this scar tissue and freed the wrap off of the hiatal region. I removed the Ethibond sutures that were securing the wrap and the fundoplication remained but appeared very floppy and once the scar tissue was released the esophagus in this region was very pliable and did not appear to be fixed anymore. The Tiffany wrap did not appear tight. As the sutures were removed identified again mucosal injury full-thickness on the stomach just proximal to the wrap. This was repaired with full-thickness 4-0 Monocryl suture. Tisseel was applied to the repair. I then brought good healthy serosa from the wrap and covered the defect by anchoring the serosa to the hiatal region thereby filling the gap where the scar tissue was hopefully preventing further scar tissue from developing in this region. The bougie moved in and out of the esophagus with ease at this point and was removed. I feel like the stricture had been adequately released. Next the pylorus was examined and was no scar tissue in this area and did not appear thickened. The tissue appeared healthy. Incision was made using cautery from the stomach dividing the pylorus and continuing the division onto the first portion of the duodenum. A Christina gastrojejunostomy tube was then brought through a separate incision in the left upper quadrant and a gastrotomy performed. The tube was advanced into the stomach and guided through the pyloric opening into the duodenum and advanced to the until the tip was identified and the jejunum. The balloon was inflated. The tube was secured with a double row of pursestring sutures and then the stomach was retracted up to the anterior abdominal wall and secured there using 2-0 silk suture. Next a longitudinal incision of the pylorus was closed transversely. The mucosa was closed with 3-0 running Vicryl suture. The closure was then imbricated using 2-0 interrupted silk suture. Tisseel was applied. Next DARIUS drains were brought through separate incisions in the right abdomen and one was placed over the hiatus and another in the region of the pylorus. There was secured in place with 2-0 silk suture. Gastrojejunostomy tube was secured with 3-0 Vicryl suture and glue was applied. There was excellent hemostasis in the abdomen. Abdomen was irrigated suctioned and the fascia was closed with a #1 running looped PDS. Abdominal wound was thoroughly irrigated and suction skin closed with wilber. Sterile dressings applied. The patient was extubated and taken recovery room in stable condition. All lap and needle counts were correct at the end of the case. I'm adding modifier 22 for the extensive time and effort required beyond the normal procedure of this type. This is secondary to the intense adhesions and scar tissue that had developed requiring extensive effort and releasing these with tedious dissection. This easily triple the operative time for a procedure of this type. Anesthesia: CIROA Surgeon / Physician: Jagu[facility] Physicist: Hansel Cordova Estimated blood loss: other (approximately 100 mL) Specimens: none sent Condition: stable Disposition: PACU Results - Labs CBC & BMP: 12/16/16 05:38 12/16/16 05:38 Discharge Plan - Discharge Medications No Action Montelukast Sodium 10 mg PO BEDTIME Metformin HCl 1,000 mg PO BID W/MEALS Dexlansoprazole [Dexilant] 60 mg PO DAILY Budesonide/Formoterol Fumarate [Symbicort 160-4.5 Mcg Inhaler] 2 puff INH BID HYDROcodone/ACETAMIN 5-325 [[place] 5-325] 1 tablet PO BID PRN PRN Reason: Pain Amlodipine Besylate 10 mg PO DAILY Theophylline ER Cap (24 Hr) [Alan-24] 300 mg PO BID W/MEALS Metoclopramide Tab [Reglan Tab] 10 mg PO ACHS predniSONE TAB [PredniSONE] 5 mg PO DAILY Albuterol Neb [Proventil Neb] 0.63 mg RESP TX Q6H cephALEXin [Cephalexin] 500 mg PO BID - Follow Up or Referral - Forms/Instructions
[2016-12-17] MEDS: MORPHINE PCA 30 MG/30 ML SYRINGE IV SCH (16:23)
--- NOTE | 2016-12-17 16:25 | Anesthesia ---
Anesthesia Post OP - Post Ansesthetic Evaluation Patient seen in post op: Yes Resp: within normal limits CV: within normal limits Mental: within normal limits Temp: within normal limits Oxfo-Ma-Xofixyjrz: within normal limits Nausea and Vomiting: within normal limits Pain: within normal limits
[2016-12-17] MEDS: ASPIRIN CHEW 81 MG TABLET PO SCH (16:51)
[2016-12-17] MEDS: predniSONE 5 MG TABLET PO SCH (16:51)
[2016-12-17] MEDS: POLYETHYLENE GLYCOL POWDER 17 GM PACK PO SCH (16:51)
[2016-12-17] MEDS: PANTOPRAZOLE 40 MG TABLET PO SCH (16:51)
[2016-12-17] MEDS: amLODIPine 5 MG TABLET PO SCH (16:51)
[2016-12-17] MEDS: BISACODYL 5 MG TABLET PO SCH (16:51)
[2016-12-17] MEDS: DOCUSATE SODIUM 100 MG CAPSULE PO SCH ×2 (16:51→20:24)
[2016-12-17] MEDS: BUDESONIDE/FORMOTEROL 160-4.5 INHALER 6 GM INH SCH ×2 (16:52→22:49)
[2016-12-17] MEDS: THEOPHYLLINE ER (24 HR) 300 MG CAPSULE PO SCH ×2 (16:52→20:24)
[2016-12-17] MEDS: MONTELUKAST 10 MG TABLET PO SCH (20:24)
[2016-12-17] MEDS: FLUCONAZOLE INJ 100 MG in IV BAG 1 EACH IV SCH (22:50)
[2016-12-18] MEDS: LACTATED RINGERS 1,000 ML IV SCH ×3 (05:21→22:20)
[2016-12-18 06:32] LABS: Basophils % 0.1 % (0.0-0.8); Eosinophils % 0.1 % (0.00-10.9); Hemoglobin 11.3 GM/DL (14.0-18.0); Immature Granulocytes % 0.3 %; Immature Granulocytes Absolute 0.03 #; Lymphocytes # 1.1 10*3/uL (1.4-4.0); Lymphocytes % 12.1 % (21.2-54.2); Mean Corpuscular HGB Conc 32.3 GM/DL (32-36); Mean Corpuscular Hemoglobin 27 PG (27-34); Monocytes # 0.7 10*3/uL (0.11-0.8); Monocytes % 7.4 % (1.7-12.7); Neutrophils # 7.4 10*3/uL (1.4-7.4); Platelet Count 304 T/CUMM (130-400); Red Blood Count 4.12 MC/CUMM (3.8-5.5); Red Cell Distribution Width 13.4 % (9.3-17.3); White Blood Count 9.2 T/CUMM (4-12)
[2016-12-18 06:57] LABS: Calcium 8.5 MG/DL (8.5-10.1); Osmolality,Calculated 274.7 MOS/KG (273-304); Potassium 4.1 MMOL/L (3.5-5.1)
[2016-12-18] MEDS ORDERED: KETOROLAC 30 MG/1 ML VIAL IV ONE (07:33)
[2016-12-18 07:43] LABS: Hypochromasia 2+; Microcytosis 1+
[2016-12-18] MEDS: BUDESONIDE/FORMOTEROL 160-4.5 INHALER 6 GM INH SCH ×2 (09:59→22:24)
[2016-12-18] MEDS: predniSONE 5 MG TABLET PO SCH (10:00)
[2016-12-18] MEDS: PANTOPRAZOLE 40 MG TABLET PO SCH (10:00)
[2016-12-18] MEDS: amLODIPine 5 MG TABLET PO SCH (10:00)
[2016-12-18] MEDS: DOCUSATE SODIUM 100 MG CAPSULE PO SCH ×2 (10:01→22:22)
[2016-12-18] MEDS: ASPIRIN CHEW 81 MG TABLET PO SCH (10:01)
[2016-12-18] MEDS: POLYETHYLENE GLYCOL POWDER 17 GM PACK PO SCH (10:01)
[2016-12-18] MEDS: BISACODYL 5 MG TABLET PO SCH (10:01)
[2016-12-18] MEDS: THEOPHYLLINE ER (24 HR) 300 MG CAPSULE PO SCH ×2 (10:02→22:33)
[2016-12-18] MEDS: INSULIN LISPRO 100 UNIT/ML SUBCUT SCH ×4 (10:02→22:36)
--- NOTE | 2016-12-18 10:33 | Hospitalist Progress Note ---
Assessment and Plan (1) Hypertension Status: Chronic Assessment and plan: Currently controlled on home medications Current Visit: No Qualifiers: Hypertension type: essential hypertension Qualified Code(s): I10 - Essential (primary) hypertension (2) COPD (chronic obstructive pulmonary disease) Status: Chronic Assessment and plan: Continue medications. Current Visit: No Qualifiers: COPD type: unspecified COPD Qualified Code(s): J44.9 - Chronic obstructive pulmonary disease, unspecified (3) Atrial fibrillation Status: Chronic Assessment and plan: Patient is currently not anticoagulated. Review of his previous medical record shows that he was on Eliquis and amiodarone. Medication list from his pharmacy shows that he has not been on those medications for over 3 months. He will need outpatient cardiology follow-up after discharge. Current Visit: No Qualifiers: Atrial fibrillation type: paroxysmal Qualified Code(s): I48.0 - Paroxysmal atrial fibrillation (4) Dysphagia Status: Acute Assessment and plan: This has improved after esophageal dilatation by gastroenterology. Current Visit: No Hospitalist: Subjective Interval history: Patient seen and examined. Operative notes reviewed. He complains of some pain with nausea. He is not feeling well at this time. Blood pressure is well controlled. Exam - Constitutional Vitals: Period Temp Pulse Resp BP Sys/Jeffrey Pulse Ox Last 24 Hr 97.6 F-98.7 F 72-107 16-24 101-147/66-94 93-100 Exam: Constitutional System: No distress. No tremulousness. Head: Normocephalic, atraumatic. Ears, Nose and Throat System: No pain or tenderness. No epistaxis or discharge Eyes System: Pupils equal, round, and reactive. Extraocular muscles intact. Neck: Supple, without adenopathy, No jugular venous distention. No thyromegaly, neck mass, or prior surgery apparent. Respiratory System: Chest clear to auscultation. Cardiovascular System: Heart with regular rate and rhythm. No murmur. GI System: Abdomen soft, appropriately tender after surgery. Postoperative changes noted. Drains in place. Musculoskeletal System: limbs with no pedal edema. Full distal pulses. Neurological System: No discernable sensory deficit. No aphasia Psychiatric System: Conversation is rational Results - Labs CBC & BMP: 12/18/16 05:51 12/18/16 05:51 Lab Results: I have reviewed the past 24 hour labs Quality Measures - VTE Contraindication to Pharmacological VTE Prophylaxis: High Risk of Bleeding
--- NOTE | 2016-12-18 11:13 | EKG Report ---
Stationary ECG Study [facility] Test Date: 12/17/2016 7:51:39 AM Pat Name: JEMAL LESLIE Department: Room: 237 Gender: M Licensed Sales Assistant: ISIAH : [id number] Requested by: Moises Barraza Order Number: [id number] Reading MD: REI VALENCIA Intervals [place] Rate: 64 P: 76 MD: 178 QRS: 15 QRSD: 89 T: 89 QT: 423 QTc: 433 Interpretive Statements SINUS RHYTHM NONSPECIFIC T-WAVE ABNORMALITY INTERPRETATION BASED ON A DEFAULT AGE OF 40 YEARS Electronically Signed On 12-18-16 11:23:13 CDT by REI VALENCIA [email or web address]
--- NOTE | 2016-12-18 11:41 | Event Note ---
Postop day #1. Afebrile vital signs stable. Patient says he feels pretty good. His abdomen is soft and appropriately tender and nondistended. Incision looks good. DARIUS drains with minimal serosanguineous output. Labs look good. We 'll continue nothing by mouth with the G-tube to gravity. DC his Owens and get him up to the chair. Continue IV fluids.
[2016-12-18] MEDS: KETOROLAC 15 MG/1 ML VIAL IV SCH ×2 (14:34→22:22)
[2016-12-18] MEDS: MONTELUKAST 10 MG TABLET PO SCH (22:23)
[2016-12-18] MEDS: FLUCONAZOLE INJ 100 MG in IV BAG 1 EACH IV SCH (22:33)
[2016-12-19] MEDS: KETOROLAC 15 MG/1 ML VIAL IV SCH ×4 (02:08→20:39)
[2016-12-19] MEDS: LACTATED RINGERS 1,000 ML IV SCH ×2 (08:23→13:24)
[2016-12-19] MEDS: ASPIRIN CHEW 81 MG TABLET PO SCH (08:29)
[2016-12-19] MEDS: DOCUSATE SODIUM 100 MG CAPSULE PO SCH ×2 (08:30→20:40)
[2016-12-19] MEDS: POLYETHYLENE GLYCOL POWDER 17 GM PACK PO SCH (08:30)
[2016-12-19] MEDS: BISACODYL 5 MG TABLET PO SCH (08:30)
[2016-12-19] MEDS: BUDESONIDE/FORMOTEROL 160-4.5 INHALER 6 GM INH SCH ×2 (08:31→20:42)
[2016-12-19] MEDS: predniSONE 5 MG TABLET PO SCH (08:31)
[2016-12-19] MEDS: PANTOPRAZOLE 40 MG TABLET PO SCH (08:31)
[2016-12-19] MEDS: amLODIPine 5 MG TABLET PO SCH (08:31)
[2016-12-19] MEDS: THEOPHYLLINE ER (24 HR) 300 MG CAPSULE PO SCH ×2 (08:32→20:39)
--- NOTE | 2016-12-19 09:52 | Event Note ---
Afebrile vital signs stable. Patient is doing well. JPs have minimal serosanguineous output. G-tube is had a moderate amount of bile tinged fluid. His abdomen is soft and appropriately tender nondistended. Incision looks good. We'll allow clear liquids and continue the G-tube to gravity for now. Recheck labs tomorrow.
[2016-12-19] MEDS: INSULIN LISPRO 100 UNIT/ML SUBCUT SCH ×4 (10:39→21:24)
--- NOTE | 2016-12-19 11:39 | Hospitalist Progress Note ---
Assessment and Plan (1) Hypertension Status: Chronic Assessment and plan: Currently controlled on home medications- reduced dose of norvasc Current Visit: No Qualifiers: Hypertension type: essential hypertension Qualified Code(s): I10 - Essential (primary) hypertension (2) COPD (chronic obstructive pulmonary disease) Status: Chronic Assessment and plan: Continue medications. Current Visit: No Qualifiers: COPD type: unspecified COPD Qualified Code(s): J44.9 - Chronic obstructive pulmonary disease, unspecified (3) Atrial fibrillation Status: Chronic Assessment and plan: Patient is currently not anticoagulated. Review of his previous medical record shows that he was on Eliquis and amiodarone. Medication list from his pharmacy shows that he has not been on those medications for over 3 months. He will need outpatient cardiology follow-up after discharge. Current Visit: No Qualifiers: Atrial fibrillation type: paroxysmal Qualified Code(s): I48.0 - Paroxysmal atrial fibrillation (4) Dysphagia Status: Acute Assessment and plan: This has improved after esophageal dilatation by gastroenterology. Current Visit: No Hospitalist: Subjective Interval history: patient seen and examined. No acute events overnight. looks better this morning. Exam - Constitutional Vitals: Period Temp Pulse Resp BP Sys/Jeffrey Pulse Ox Last 24 Hr 97.0 F-99.7 F 73-93 16-20 90-119/58-76 95-96 Exam: Constitutional System: No distress. No tremulousness. Head: Normocephalic, atraumatic. Ears, Nose and Throat System: No pain or tenderness. No epistaxis or discharge Eyes System: Pupils equal, round, and reactive. Extraocular muscles intact. Neck: Supple, without adenopathy, No jugular venous distention. No thyromegaly, neck mass, or prior surgery apparent. Respiratory System: Chest clear to auscultation. Cardiovascular System: Heart with regular rate and rhythm. No murmur. GI System: Abdomen soft, appropriately tender after surgery. Postoperative changes noted. Drains in place. Musculoskeletal System: limbs with no pedal edema. Full distal pulses. Neurological System: No discernable sensory deficit. No aphasia Psychiatric System: Conversation is rational Results - Labs CBC & BMP: 12/18/16 05:51 12/18/16 05:51 Lab Results: I have reviewed the past 24 hour labs Quality Measures - VTE Contraindication to Pharmacological VTE Prophylaxis: High Risk of Bleeding
[2016-12-19] MEDS: MORPHINE PCA 30 MG/30 ML SYRINGE IV SCH (15:44)
[2016-12-19] MEDS: MONTELUKAST 10 MG TABLET PO SCH (20:40)
[2016-12-19] MEDS: FLUCONAZOLE INJ 100 MG in IV BAG 1 EACH IV SCH (20:41)
[2016-12-20] MEDS: LACTATED RINGERS 1,000 ML IV SCH ×2 (02:37→10:46)
[2016-12-20] MEDS: KETOROLAC 15 MG/1 ML VIAL IV SCH ×4 (02:40→20:22)
[2016-12-20] MEDS: INSULIN LISPRO 100 UNIT/ML SUBCUT SCH ×4 (09:04→20:24)
[2016-12-20] MEDS: amLODIPine 5 MG TABLET PO SCH (09:49)
[2016-12-20] MEDS: PANTOPRAZOLE 40 MG TABLET PO SCH (09:50)
[2016-12-20] MEDS: predniSONE 5 MG TABLET PO SCH (09:50)
[2016-12-20] MEDS: ASPIRIN CHEW 81 MG TABLET PO SCH (09:51)
[2016-12-20] MEDS: THEOPHYLLINE ER (24 HR) 300 MG CAPSULE PO SCH ×2 (09:51→20:22)
[2016-12-20] MEDS: BISACODYL 5 MG TABLET PO SCH (09:54)
[2016-12-20] MEDS: DOCUSATE SODIUM 100 MG CAPSULE PO SCH ×2 (09:55→20:22)
[2016-12-20] MEDS: BUDESONIDE/FORMOTEROL 160-4.5 INHALER 6 GM INH SCH ×2 (09:56→20:25)
[2016-12-20] MEDS: POLYETHYLENE GLYCOL POWDER 17 GM PACK PO SCH (09:56)
--- NOTE | 2016-12-20 10:09 | Event Note ---
Afebrile vital signs stable. He tolerated clear liquids without any problems. His pain is well controlled and he is hardly using the HUM[employer] OPERATIONS COORDINATOR. On exam he is clear to auscultation bilaterally and heart is regular rate and rhythm. Abdomen is soft and appropriately tender and the incision looks good. Mild to moderate amount of output from the G-tube which appears bile tinged. I think most of what he took nothing by mouth removed through the stomach. DARIUS drains with minimal output of serosanguineous fluid. Plan: We'll clamp the G-tube today. Continue clear liquids. Continue to monitor DARIUS drains. Will DC his HUM[employer] OPERATIONS COORDINATOR and IV fluids. We'll give him high set elixir for pain and morphine for breakthrough pain. Encouraged ambulation. Overall he appears to be improving well.
--- NOTE | 2016-12-20 10:37 | Hospitalist Progress Note ---
Assessment and Plan (1) Hypertension Status: Chronic Assessment and plan: Currently controlled on home medications- reduced dose of norvasc Current Visit: No Qualifiers: Hypertension type: essential hypertension Qualified Code(s): I10 - Essential (primary) hypertension (2) COPD (chronic obstructive pulmonary disease) Status: Chronic Assessment and plan: Continue medications. Current Visit: No Qualifiers: COPD type: unspecified COPD Qualified Code(s): J44.9 - Chronic obstructive pulmonary disease, unspecified (3) Atrial fibrillation Status: Chronic Assessment and plan: Patient is currently not anticoagulated. Review of his previous medical record shows that he was on Eliquis and amiodarone. Medication list from his pharmacy shows that he has not been on those medications for over 3 months. He will need outpatient cardiology follow-up after discharge. Current Visit: No Qualifiers: Atrial fibrillation type: paroxysmal Qualified Code(s): I48.0 - Paroxysmal atrial fibrillation (4) Dysphagia Status: Acute Assessment and plan: This has improved after esophageal dilatation by gastroenterology. Current Visit: No Hospitalist: Subjective Interval history: Patient seen and examined. No acute events overnight. Pain is controlled and he looks much more comfortable. Exam - Constitutional Vitals: Period Temp Pulse Resp BP Sys/Jeffrey Pulse Ox Last 24 Hr 98.0 F-98.4 F 70-80 18-22 101-132/66-72 96-99 Exam: Constitutional System: No distress. No tremulousness. Head: Normocephalic, atraumatic. Ears, Nose and Throat System: No pain or tenderness. No epistaxis or discharge Eyes System: Pupils equal, round, and reactive. Extraocular muscles intact. Neck: Supple, without adenopathy, No jugular venous distention. No thyromegaly, neck mass, or prior surgery apparent. Respiratory System: Chest clear to auscultation. Cardiovascular System: Heart with regular rate and rhythm. No murmur. GI System: Abdomen soft, appropriately tender after surgery. Postoperative changes noted. Drains in place. Positive bowel sounds and positive flatus. Musculoskeletal System: limbs with no pedal edema. Full distal pulses. Neurological System: No discernable sensory deficit. No aphasia Psychiatric System: Conversation is rational Results - Labs CBC & BMP: 12/18/16 05:51 12/18/16 05:51 Lab Results: I have reviewed the past 24 hour labs Quality Measures - VTE Contraindication to Pharmacological VTE Prophylaxis: High Risk of Bleeding
[2016-12-20] MEDS ORDERED: HYDROcod/ACETAMIN 7.5-325 MG/15 ML UDCUP PO PRN (11:30)
[2016-12-20] MEDS ORDERED: MORPHINE 2 MG/1 ML SYRINGE IV PRN (11:31)
[2016-12-20 12:55] LABS: Basophils % 0.2 % (0.0-0.8); Eosinophils # 0.1 10*3/uL (0.0-0.87); Hematocrit 35.9 VOL% (42.0-52.0); Hemoglobin 11.2 GM/DL (14.0-18.0); Immature Granulocytes % 0.5 %; Immature Granulocytes Absolute 0.04 #; Lymphocytes # 0.7 10*3/uL (1.4-4.0); Lymphocytes % 8.5 % (21.2-54.2); Mean Corpuscular HGB Conc 31.2 GM/DL (32-36); Mean Corpuscular Hemoglobin 28 PG (27-34); Mean Corpuscular Volume 88.9 FL (87-102); Mean Platelet Volume 9.6 FL (9.6-12.0); Monocytes # 0.6 10*3/uL (0.11-0.8); Monocytes % 6.9 % (1.7-12.7); Neutrophils # 7.3 10*3/uL (1.4-7.4); Neutrophils % 82.9 % (38.7-73.9); Platelet Count 321 T/CUMM (130-400); Red Blood Count 4.04 MC/CUMM (3.8-5.5); Red Cell Distribution Width 13.2 % (9.3-17.3); White Blood Count 8.8 T/CUMM (4-12)
[2016-12-20 13:37] LABS: Albumin 2.6 G/DL (3.4-5.0); Bilirubin,Total 0.6 MG/DL (0.2-1.0); Calcium 8.9 MG/DL (8.5-10.1); Osmolality,Calculated 279.3 MOS/KG (273-304); Potassium 3.7 MMOL/L (3.5-5.1); Total Protein 5.6 G/DL (6.4-8.3)
[2016-12-20] MEDS: FLUCONAZOLE INJ 100 MG in IV BAG 1 EACH IV SCH (20:22)
[2016-12-20] MEDS: MONTELUKAST 10 MG TABLET PO SCH (20:22)
[2016-12-21] MEDS: KETOROLAC 15 MG/1 ML VIAL IV SCH ×4 (02:15→21:27)
[2016-12-21 07:23] LABS: Eosinophils # 0.1 10*3/uL (0.0-0.87); Eosinophils % 1.6 % (0.00-10.9); Hematocrit 28.4 VOL% (42.0-52.0); Immature Granulocytes % 0.5 %; Immature Granulocytes Absolute 0.03 #; Lymphocytes # 1.3 10*3/uL (1.4-4.0); Lymphocytes % 22.8 % (21.2-54.2); Mean Corpuscular HGB Conc 31.7 GM/DL (32-36); Mean Corpuscular Hemoglobin 28 PG (27-34); Mean Corpuscular Volume 87.4 FL (87-102); Mean Platelet Volume 9.7 FL (9.6-12.0); Monocytes # 0.7 10*3/uL (0.11-0.8); Monocytes % 11.6 % (1.7-12.7); Neutrophils # 3.6 10*3/uL (1.4-7.4); Neutrophils % 63.5 % (38.7-73.9); Platelet Count 324 T/CUMM (130-400); Red Blood Count 3.25 MC/CUMM (3.8-5.5); Red Cell Distribution Width 12.8 % (9.3-17.3)
[2016-12-21 07:31] LABS: White Blood Count 5.6 T/CUMM (4-12)
[2016-12-21 07:50] LABS: Calcium 8.5 MG/DL (8.5-10.1); Magnesium 1.9 MG/DL (1.8-2.4); Potassium 3.4 MMOL/L (3.5-5.1)
--- NOTE | 2016-12-21 08:12 | Event Note ---
Afebrile vital signs stable. Patient says he is doing well. He took in the clear liquids without any dysphagia, nausea, or vomiting. She has no significant abdominal pain. His DARIUS drains remain minimal output of serous fluid. His G-tube was clamped yesterday. He looks great and wants to eat. On exam his abdomen is soft and appropriately tender around the incision and nondistended. We'll advance him to a soft diet with chopped meats. Gastroparesis diet recommendations were discussed. He was instructed to eat small volume meals more frequently. He needs to sit up when eating and not lay down until an hour after he is eaten. She would like to go home today if he is unable to tolerate a diet. I think that'll be fine. Arranging home health to help with his DARIUS drain care. I'll see him next week. We'll check on him after lunch and discharge if he is doing well.
[2016-12-21] MEDS: DOCUSATE SODIUM 100 MG CAPSULE PO SCH ×2 (08:14→21:26)
[2016-12-21] MEDS: PANTOPRAZOLE 40 MG TABLET PO SCH (08:14)
[2016-12-21] MEDS: POLYETHYLENE GLYCOL POWDER 17 GM PACK PO SCH (08:14)
[2016-12-21] MEDS: amLODIPine 5 MG TABLET PO SCH (08:14)
[2016-12-21] MEDS: THEOPHYLLINE ER (24 HR) 300 MG CAPSULE PO SCH ×2 (08:14→21:27)
[2016-12-21] MEDS: ASPIRIN CHEW 81 MG TABLET PO SCH (08:15)
[2016-12-21] MEDS: predniSONE 5 MG TABLET PO SCH (08:15)
[2016-12-21] MEDS: BISACODYL 5 MG TABLET PO SCH (08:15)
[2016-12-21] MEDS: BUDESONIDE/FORMOTEROL 160-4.5 INHALER 6 GM INH SCH ×2 (08:27→21:29)
[2016-12-21] MEDS: INSULIN LISPRO 100 UNIT/ML SUBCUT SCH ×4 (09:18→21:28)
--- NOTE | 2016-12-21 13:06 | Hospitalist Progress Note ---
Assessment and Plan (1) Hypertension Status: Chronic Assessment and plan: Currently controlled on home medications- reduced dose of norvasc Current Visit: No Qualifiers: Hypertension type: essential hypertension Qualified Code(s): I10 - Essential (primary) hypertension (2) COPD (chronic obstructive pulmonary disease) Status: Chronic Assessment and plan: Continue medications. Current Visit: No Qualifiers: COPD type: unspecified COPD Qualified Code(s): J44.9 - Chronic obstructive pulmonary disease, unspecified (3) Atrial fibrillation Status: Chronic Assessment and plan: Patient is currently not anticoagulated. Review of his previous medical record shows that he was on Eliquis and amiodarone. Medication list from his pharmacy shows that he has not been on those medications for over 3 months. He will need outpatient cardiology follow-up after discharge. Current Visit: No Qualifiers: Atrial fibrillation type: paroxysmal Qualified Code(s): I48.0 - Paroxysmal atrial fibrillation (4) Dysphagia Status: Acute Assessment and plan: This has improved after esophageal dilatation by gastroenterology. Current Visit: No Hospitalist: Subjective Interval history: Patient seen and examined. No acute events overnight. Discharge planned for today. Patient is dressed and sitting down to eat lunch. He offers no complaints. Exam - Constitutional Vitals: Period Temp Pulse Resp BP Sys/Jeffrey Pulse Ox Last 24 Hr 98 F-98.6 F 71-80 18-20 112-138/70-83 97-100 Exam: Constitutional System: No distress. No tremulousness. Head: Normocephalic, atraumatic. Ears, Nose and Throat System: No pain or tenderness. No epistaxis or discharge Eyes System: Pupils equal, round, and reactive. Extraocular muscles intact. Neck: Supple, without adenopathy, No jugular venous distention. No thyromegaly, neck mass, or prior surgery apparent. Respiratory System: Chest clear to auscultation. Cardiovascular System: Heart with regular rate and rhythm. No murmur. GI System: Abdomen soft, appropriately tender after surgery. Postoperative changes noted. Drains in place. Positive bowel sounds and positive flatus. Musculoskeletal System: limbs with no pedal edema. Full distal pulses. Neurological System: No discernable sensory deficit. No aphasia Psychiatric System: Conversation is rational Results - Labs CBC & BMP: 12/21/16 06:31 12/21/16 06:31 Lab Results: I have reviewed the past 24 hour labs Quality Measures - VTE Contraindication to Pharmacological VTE Prophylaxis: High Risk of Bleeding Specialty Discharge - Follow Up or Referrals Follow up with: Jaguar Hernandez MD [Physician] - 12/29/16 9:15 am
[2016-12-21] MEDS ORDERED: POLYETHYLENE GLYCOL POWDER 17 GM PACK PO ONE (20:29)
[2016-12-21] MEDS: AMIODARONE 200 MG TABLET PO SCH (21:27)
[2016-12-21] MEDS: MONTELUKAST 10 MG TABLET PO SCH (21:27)
[2016-12-21] MEDS: FLUCONAZOLE INJ 100 MG in IV BAG 1 EACH IV SCH (21:37)
[2016-12-22] MEDS: KETOROLAC 15 MG/1 ML VIAL IV SCH ×2 (02:12→09:18)
[2016-12-22] MEDS: INSULIN LISPRO 100 UNIT/ML SUBCUT SCH ×2 (09:14→12:27)
[2016-12-22] MEDS: ASPIRIN CHEW 81 MG TABLET PO SCH (09:15)
[2016-12-22] MEDS: DOCUSATE SODIUM 100 MG CAPSULE PO SCH (09:15)
[2016-12-22] MEDS: BISACODYL 5 MG TABLET PO SCH (09:16)
[2016-12-22] MEDS: AMIODARONE 200 MG TABLET PO SCH (09:16)
[2016-12-22] MEDS: POLYETHYLENE GLYCOL POWDER 17 GM PACK PO SCH (09:17)
[2016-12-22] MEDS: amLODIPine 5 MG TABLET PO SCH (09:17)
[2016-12-22] MEDS: predniSONE 5 MG TABLET PO SCH (09:17)
[2016-12-22] MEDS: BUDESONIDE/FORMOTEROL 160-4.5 INHALER 6 GM INH SCH (09:18)
[2016-12-22] MEDS: PANTOPRAZOLE 40 MG TABLET PO SCH (09:18)
[2016-12-22] MEDS: THEOPHYLLINE ER (24 HR) 300 MG CAPSULE PO SCH (09:18)
--- NOTE | 2016-12-22 10:54 | Hospitalist Progress Note ---
Assessment and Plan (1) Hypertension Status: Chronic Assessment and plan: Currently controlled on home medications- reduced dose of norvasc Current Visit: No Qualifiers: Hypertension type: essential hypertension Qualified Code(s): I10 - Essential (primary) hypertension (2) COPD (chronic obstructive pulmonary disease) Status: Chronic Assessment and plan: Continue medications. Current Visit: No Qualifiers: COPD type: unspecified COPD Qualified Code(s): J44.9 - Chronic obstructive pulmonary disease, unspecified (3) Atrial fibrillation Status: Chronic Assessment and plan: Patient is currently not anticoagulated. Review of his previous medical record shows that he was on Eliquis and amiodarone. Medication list from his pharmacy shows that he has not been on those medications for over 3 months. He will need outpatient cardiology follow-up after discharge. Current Visit: No Qualifiers: Atrial fibrillation type: paroxysmal Qualified Code(s): I48.0 - Paroxysmal atrial fibrillation (4) Dysphagia Status: Acute Assessment and plan: This has improved after esophageal dilatation by gastroenterology. Current Visit: No Hospitalist: Subjective Interval history: Patient seen and examined. He is scheduled for discharge today. He was not sent home yesterday due to lack of a bowel movement after surgery. His abdomen is soft. He is tolerating regular diet. Stool softeners have been given. Exam - Constitutional Vitals: Period Temp Pulse Resp BP Sys/Jeffrey Pulse Ox Last 24 Hr 98.3 F-99.3 F 71-92 18-20 111-120/63-78 94-100 Exam: Constitutional System: No distress. No tremulousness. Head: Normocephalic, atraumatic. Ears, Nose and Throat System: No pain or tenderness. No epistaxis or discharge Eyes System: Pupils equal, round, and reactive. Extraocular muscles intact. Neck: Supple, without adenopathy, No jugular venous distention. No thyromegaly, neck mass, or prior surgery apparent. Respiratory System: Chest clear to auscultation. Cardiovascular System: Heart with regular rate and rhythm. No murmur. GI System: Abdomen soft, appropriately tender after surgery. Postoperative changes noted. Drains in place. Positive bowel sounds and positive flatus. Musculoskeletal System: limbs with no pedal edema. Full distal pulses. Neurological System: No discernable sensory deficit. No aphasia Psychiatric System: Conversation is rational Results - Labs CBC & BMP: 12/21/16 06:31 12/21/16 06:31 Lab Results: I have reviewed the past 24 hour labs Quality Measures - VTE Contraindication to Pharmacological VTE Prophylaxis: High Risk of Bleeding Specialty Discharge - Follow Up or Referrals Follow up with: Jaguar Hernandez MD [Physician] - 12/29/16 9:15 am
--- NOTE | 2016-12-22 11:54 | Discharge Summary ---
Hospital Course - Hospital Course Hospital Course: See history and physical. Patient underwent EGD with Dr. Mclain which revealed esophageal stricture as well as candidal esophagitis. He was started on fluconazole at that time. He also underwent a balloon dilatation of the esophagus with Dr. Mclain. Gastric emptying study revealed a gastrointestinal reflux disease as well as delayed gastric emptying. He ultimately required exploratory laparotomy with revision of his Lap Tiffany, pyloroplasty and Gtube placement with Dr. Hernandez. He tolerated this procedure well. He had remaining KESHAV drains 2 with persistent serosanguinous output. Ultimately, the patient's pain was controlled and he was tolerating p.o. intake without difficulty. Mobilizing without diffuclty. He states he did not produce a bowel movement but was producing flatus, and was provided an enema on the day of discharge. He is to continue continue with stool softeners and Dulcolax suppositories as needed at home. Notify office with abdominal pain, distension or no BM for 3 days. The patient has a history of hypertension and diabetes mellitus which were well controlled in the inpatient stay. History of COPD without acute exacerbation or evidence of pneumonia upon discharge. Patient also has a history of paroxysmal atrial fibrillation diagnosed on previous visit 09/07/2016 at which time he was discharged on Eliquis and amiodarone per Dr. Browning, et al, but the patient has been noncompliant with this regimen confirmed by his report as well as a refill history from the pharmacy. Rhythm strips scanned into record indicate normal sinus rhythm throughout this visit. Will continue medications as tolerated while inpatient. F/u Dr. Browning or one of his partners for additional recommendations regarding anticoagulation considering noncompliance as recommended Dr. James. - Time spent with patient Time with patient DS: Greater than 30 minutes Diagnosis - Discharge Diagnosis (1) Stricture esophagus Status: Acute (2) Candidiasis of the esophagus Status: Acute (3) Gastroparesis Status: Acute (4) Diabetes Status: Acute (5) Paroxysmal atrial fibrillation Status: Acute (6) COPD (chronic obstructive pulmonary disease) Status: Chronic Specialty Discharge - Follow Up or Referrals Follow up with: Jaguar Hernandez MD [Physician] - 12/29/16 9:15 am Obdulio Browning MD [Physician] - (7-10d re: paroxysmal Afib) Discharge Plan - Discharge Data Disposition: Home Health Service Condition at Discharge: Stable Discharge Diet: advance to your usual diet Activity: no lifting (No lifting, pushing or pulling > 20lb) Hygiene: keep area(s) dry Driving: not until seen by doctor Contact your physician if you experience:: fever over 101, Difficulty voiding, Redness or swelling, Nausea/Vomiting (Abdominal pain or distension), Shortness of breath, Bleeding Wound / Dressing Care Instructions: Keep wounds clean, dry and covered. Change drain dressing every other day. Empty drains twice daily and keep record of how much fluid is emptied and color. Bring record to f/u with Dr. Hernandez as scheduled. - Discharge Medications New Aspirin Chew Tab 81 mg PO DAILY tablet Bisacodyl Supp [Dulcolax Supp] 10 mg RECTAL DAILY PRN #15 supp PRN Reason: Constipation Docusate Sodium Cap [Colace Cap] 100 mg PO BID capsule Hydrocodone/Acetaminophen [Hycet 7.5 mg-325 mg/15 ml Soln] 15 ml PO Q6HR PRN #250 solution PRN Reason: Pain Moderate To Severe (4-10) Pantoprazole Tab [Protonix Tab] 40 mg PO DAILY #30 tablet Amiodarone Tab [Cordarone Tab] 200 mg PO BID #30 tablet Fluconazole Tab [Diflucan Tab] 200 mg PO DAILY #10 tablet Continue Montelukast Sodium 10 mg PO BEDTIME Metformin HCl 1,000 mg PO BID W/MEALS Dexlansoprazole [Dexilant] 60 mg PO DAILY Budesonide/Formoterol Fumarate [Symbicort 160-4.5 Mcg Inhaler] 2 puff INH BID Amlodipine Besylate 10 mg PO DAILY Theophylline ER Cap (24 Hr) [Alan-24] 300 mg PO BID W/MEALS predniSONE TAB [PredniSONE] 5 mg PO DAILY Albuterol Neb [Proventil Neb] 0.63 mg RESP TX Q6H Discontinued HYDROcodone/ACETAMIN 5-325 [[place] 5-325] 1 tablet PO BID PRN PRN Reason: Pain Metoclopramide Tab [Reglan Tab] 10 mg PO ACHS cephALEXin [Cephalexin] 500 mg PO BID - Follow Up or Referral Follow Up: Jaguar Hernandez MD [Physician] - 12/29/16 9:15 am Obdulio Browning MD [Physician] - (7-10d re: paroxysmal Afib) - Forms/Instructions Additional Discharge Instructions: F/u PCP 2 wk - establish as new patient to follow pt with multiple comorbidities. Exam - Constitutional Vitals: Period Temp Pulse Resp BP Sys/Jeffrey Pulse Ox Last 24 Hr 97.9 F-99.3 F 71-92 18-20 111-133/63-85 94-100 General appearance: no acute distress - Head Head exam: Present: normal inspection, normocephalic, atraumatic - Eye Eye exam: Absent: conjunctival injection, scleral icterus - Respiratory Respiratory exam: Present: clear to auscultation bilaterally, decreased breath sounds. Absent: rales, rhonchi, wheezes - Cardiovascular Cardiovascular exam: Present: regular rate and rhythm - GI/Abdominal GI/Abdominal exam: Present: normal bowel sounds, soft. Absent: distended, guarding, tenderness - Neurological Exam Neurological exam: Present: alert, oriented X3 - Skin Skin exam: Present: normal color, warm Discharge Results Procedures and tests throughout hospitalization: 1. EGD - Dr. Mclain 2. Balloon Dilatation - Dr. Mclain 3. Exploratory laparotomy with revision of Lap Tiffany Fundoplication, pyloroplasty and g-tube placement Labs on day of discharge: Labs from last 24 hours 12/22/16 12/21/16 12/21/16 06:55 19:34 15:33 POC Glucose 102 164 H 168 H 12/21/16 12:10 POC Glucose 109 H DS: Provider Date of admission: 12/14/16 18:37 Primary care physician: . No PCP Attending physician on admission: Jaguar Hernandez MD Consults: 12/14/16 18:42 Consult to Physician [CONS] Routine Comment: mgmt med problems - ok to see in am Consulting Provider: Steph Choudhury Consulting Provider Notified: Yes Person Notified: Az choudhury Date Notified: 12/15/16 Time Notified: 07:57 12/21/16 07:56 Consult to Case Mgmt/Social Srvs [CONS] Routine Reason for Case Mgmt/Social Srvs: Home Health Consult Comment: keshav drainsx2 Discharging clinician: Allyson Moreno PA-C
[2016-12-22 12:27] VITALS: BP 124/72
[2016-12-22] MEDS ORDERED: SODIUM PHOSPHATE ENEMA 133 ML BOTTLE RECTAL ONE (14:08)
== END 2016-12-22 16:05 | disposition home health service (06) | DRG 327 ==
LOC: N.ED 16:15 → N.EDINP 18:37 → N.2E 19:49
PROVIDERS: ADMIT Surgery; ATTEND Surgery